=== PATIENT | male | born 1970 | race Caucasian/White ===

== ENCOUNTER 2018-07-05 18:10 | Inpatient (IN) | payer OTHER ==
[~2018-07-05] VITALS: Ht 154.9 cm; Wt 56.4 kg
[~2018-07-05 18:10] MED LIST: ACETAMINOPHEN325 M1 PO; AFRIN120 MG; AFRIN15 ML NASAL; CARAFATE 11 GM/10 M1 PO; CARBAMAZEPINE300 MG PO; CEPACOL SORE T1 EAC2 MM; CEPACOL SORE T1 EAC7 MM; CLOTRIMAZOLE-BE15 GM TP; COLACE100 MG PO; COMPAZINE25 MG RECTAL; COZAAR 50 MG TA50 M1 PO; FIBER LAX625 MG PO; IBUPROFEN 200200 M1 PO; IBUPROFEN 400400 M2 PO; LISINOPRIL10 MG PO; LOPERAMIDE 2 MG2 M1 PO; LOPRESSOR25 PO; METOPROLOL SUCC25 M1 PO; MI ACID LIQUID355 ML PO; MIRALAX17 GM PO; NIZORAL120 ML TP; OMEPRAZOLE20 M2 PO; ONDANSETRON HCL4 M2 PO; PRILOSEC 20 MG20 MG PO; PRILOSEC40 MG PO; PROTONIX40 M1 PO; ROBITUSSIN100 MG/53 PO; ROBITUSSIN15 MG/5 M1 PO; SENNA PO; TUMS PO; ZOFRAN ODT4 MG PO; [UNRECOGNIZED DRUG - CODE] PO
[2018-07-05 18:11] VITALS: BP 100/59
[2018-07-05 18:51] LABS: ABSOLUTE NEUTROPHILS 5.5 thou/uL (1.4-8.2); BASOPHILS 0.4 % (0.0-2.0); EOSINOPHILS 0.2 % (0.0-3.0); HEMATOCRIT 37.3 % (42.0-52.0); HEMOGLOBIN 12.2 gm/dL (14.0-18.0); LYMPHOCYTES 9.7 % (24.0-44.0); MCH 26.4 pg (26.0-34.0); MCHC 32.8 g/dL (28.0-37.0); MCV 80.3 fL (80.0-100.0); MONOCYTES 5.3 % (1.0-8.0); PLATELET COUNT 167 thou/uL (150-400); POLYS 84.4 % (36.0-66.0); RBC 4.64 mil/uL (4.50-6.00); RDW 15.7 % (10.5-14.5); WBC 6.5 thou/uL (4.0-11.0)
[2018-07-05 18:52] LABS: CALCIUM 8.2 mg/dL (8.5-10.1); CREATININE 0.7 mg/dL (0.7-1.3); POTASSIUM 3.4 mmol/L (3.5-5.1)
[2018-07-05 19:02] LABS: ALBUMIN 3.6 g/dL (3.4-5.0); TOTAL BILIRUBIN 0.3 mg/dL (<0.1-1.0)
[2018-07-05 20:00] VITALS: BP 100/59
[2018-07-05 20:28] VITALS: BP 101/58
[2018-07-05 20:30] VITALS: BP 113/71
[2018-07-05] MEDS ORDERED: COLACE100 MG PO (22:26)
--- NOTE | 2018-07-06 00:05 | NUR ---
CALLED [facility] TO VERIFY PRIMARY CARE DOCTOR AND WAS INFORED THAT IT WAS DR IGNACIO NOT DR. WU.
[2018-07-06 00:18] VITALS: BP 102/61
[2018-07-06 02:40] LABS: HEMATOCRIT 35.6 % (42.0-52.0); HEMOGLOBIN 11.2 gm/dL (14.0-18.0)
[2018-07-06 04:19] VITALS: BP 114/75
[2018-07-06 07:34] VITALS: BP 105/63
--- NOTE | 2018-07-06 10:39 | NUR ---
INITIAL ASSESSMENT: Pt evaluated for d/c planning needs. Reviewed chart and spoke with nurse and pt. 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 pt is alert and oriented, with history of CP. Spoke with scanning coordinator at [facility] and they are able to accept pt back on d/c from hospital. Will remain available to assist as needed.
[2018-07-06 11:47] VITALS: BP 108/64
[2018-07-06 16:15] VITALS: BP 114/72
--- NOTE | 2018-07-06 18:45 | NUR ---
SHIFT SUMMARY: CALLED SISTER TO OBTAIN TELEPHONE CONSENT FOR EGD. PT NPO PRIOR TO PROCEDURE. EGD- PT HAS HIATIAL HERNIA OTHERWISE NEGATIVE. PT ALERT, ORIENTED, PLEASANT, SMILING, SR, ROOM AIR, TOLERATED PM MEAL, ADEQUATE URINE OUTPUT. PT CONSENTED TO PLACEMENT OF CONDOM CATH SINCE HAVING DIFFICULTY USING URINAL AND PARTIALLY SPILLING CONTENT. SISTER PRESENT, PROVIDING SUPPORT. PT PROGRESSING.
[2018-07-06 19:22] VITALS: BP 128/86
[2018-07-07 01:24] LABS: HEMATOCRIT 33.8 % (42.0-52.0); HEMOGLOBIN 10.9 gm/dL (14.0-18.0)
[2018-07-07 05:30] VITALS: BP 115/75
[2018-07-07 06:04] LABS: DIRECT BILIRUBIN < 0.1 mg/dL (<0.1-0.3); LIPASE 171 U/L (73-393); SGOT 19 U/L (15-37); SGPT 23 U/L (30-65); TOTAL BILIRUBIN 0.2 mg/dL (<0.1-1.0); TOTAL PROTEIN 6.6 g/dL (6.4-8.2)
--- NOTE | 2018-07-07 06:43 | NUR ---
FOLLOWING POC WITH [facility]. PT HAS BEEN NPO SINCE 2399 FOR ABD ULTRA SOUND. Q2 TURNS. PT CAN ALSO CALL AND EXPRESS HIS NEEDS. ONLY COMPLAINT FROM PT WAS HEADACHE AND PO ACETA GIVEN. HOURLY ROUNDING.
[2018-07-07 07:22] VITALS: BP 125/73
--- NOTE | 2018-07-07 13:26 | NUR ---
DISCHARGE ORDERS RECEIVED. PATIENT DISCHARGING TO [facility]. CHART COPIED PER CFO. ORDERS FAXED TO [facility]. VERIFIED RECEIVED. [facility] TO TRANSPORT PATIENT AND TO [facility] VIA [facility] [phone] HOURS. SISTER/DPOA, ROSELINE NOTIFIED, LEFT FOR HER. UNIT NOTIFIED AND CONTACT NUMBER FOR REPORT PROVIDED. UNIT CM/SW AWARE.
--- NOTE | 2018-07-07 14:42 | NUR ---
assumed patient care at 0700. a/o x4. pleasant. no v/n moted. tolerated fill liquid deit. dc to snf now.
== END 2018-07-07 14:45 | DRG 377 ==
LOC: ER 18:10 → EROBS 19:44 → 3W 19:44
PROVIDERS: Emergency Medicine; Internal Medicine Gastroenterology; Nurse Practitioner Acute Care; ADMIT Family Medicine
PROC: 0DJ08ZZ Inspection of Upper Intestinal Tract, Via Natural or Artificial Opening Endoscopic (ICD-10-PCS; principal; 2018-07-06)
DX: K92.2 Gastrointestinal hemorrhage, unspecified (principal); E43 Unspecified severe protein-calorie malnutrition; G80.9 Cerebral palsy, unspecified; K21.9 Gastro-esophageal reflux disease without esophagitis; I10 Essential (primary) hypertension; G40.909 Epilepsy, unspecified, not intractable, without status epilepticus; E87.6 Hypokalemia; Z79.899 Other long term (current) drug therapy
CPT/HCPCS: 10879; 62110; 62900; 70005

== ENCOUNTER 2019-01-27 04:13 | Inpatient (IN) | payer OTHER ==
[2019-01-27] VITALS (7 sets, daily range): BP systolic 111–152; BP diastolic 70–111
[~2019-01-27] VITALS: Ht 154.9 cm; Wt 68.0 kg
--- NOTE | ~2019-01-27 | HC ---
[facility] [place] [address] CONSULTATION Name: YU RODRIGUEZ Room #: 212-P [facility] IN .R.#: [id number] Admission: 01/27/19 ������������������ Attend Phys: Adal Forbes MD Discharge: ������������������ Date of : 68 Report #: [id number] THIS REPORT FOR: //name// CC: Adal Fosterguillermina DATE OF SERVICE: 01/27/2019 GASTROINTESTINAL CONSULTATION HISTORY OF PRESENT ILLNESS: The patient is a very pleasant 48-year-old patient, disabled with cerebral palsy who I have been asked to see for further evaluation of nausea and vomiting, which occurred after eating a [place] meal yesterday that he said did not agree with his stomach. The emesis was dark in nature, but not frankly melenic. He denies significant abdominal pain. He has been constipated over the course of the last week or so, which is unusual for him. He does take Dulcolax when he gets constipated and has taken MiraLax in the past. His medical history is well outlined in the chart, but includes also esophagitis, GI bleed, hematemesis, hiatal hernia, nausea and vomiting, peptic ulcer disease, upper GI bleed. He had an upper endoscopy done in 06/2018, which was normal. His medication lists include pantoprazole, Carafate, Tylenol, Nizoral, Cozaar, Lopressor, Colace, Tegretol. Other medical history includes cerebral palsy, gastritis, hypertension, seizures. He denies significant alcohol or tobacco consumption. REVIEW OF SYSTEMS: Negative for weight loss, weakness or fatigue. He denies head, eyes, ears, nose or throat complaints. Denies chest pain, chest palpitation, chest pressure, cough, shortness of breath, wheezing, genitourinary, musculoskeletal, or neuropsychiatric complaints beyond that mentioned above. PHYSICAL EXAMINATION: VITAL SIGNS: Afebrile. Vital signs are stable. HEENT: Nonicteric. He has a chronic disfigurement of cerebral palsy. NECK: No JVD, thyromegaly or bruits. CARDIOVASCULAR: Regular. LUNGS: Clear. ABDOMEN: Soft, nondistended, nontender, normoactive bowel sounds. No hepatosplenomegaly. No stigmata of chronic liver disease. No abnormal masses or bruits. EXTREMITIES: No clubbing, cyanosis or edema. [address] [address] CONSULTATION Name: YU RODRIGUEZ Room #: 212-P [facility] IN M.R.#: [id number] Admission: 01/27/19 ������������������ Attend Phys: Adal Forbes MD Discharge: ������������������ Date of : 68 Report #: [id number] NEUROLOGIC: Not performed. RECTAL: Not performed. PERTINENT LABORATORY DATA: Include hemoglobin 12.9, white count 10.9, MCV and RDW are normal. INR 12.1. Chemistry is notable for BUN 25, creatinine 0.6, otherwise normal chemistry. CT scan, mild to moderate size hiatal hernia, thick walled appearance of the pylorus, moderate stool, but no evidence of fecal impaction or bowel obstruction. ASSESSMENT AND PLAN: In summary, the patient has evidence of acute gastroenteritis. His hemoglobin is stable. He has been on double dose PPI therapy since his upper endoscopy in 06/2018, which was normal except for a small hiatal hernia. At this point, I would just treat him symptomatically by advancing his diet, slowly covering him with antiemetics and PPI. At this point, no upper endoscopy or other gastrointestinal studies are planned. I appreciate the opportunity to participate in the care of this nice man. ��������������������������������������������� ���������������������������������������� By: ��������������������������������������������� [id number] Benson Mast MD /nt
[2019-01-27] MEDS ORDERED: CARAFATE 1 GM TA1 G1 PO (04:34)
[2019-01-27] MEDS ORDERED: COZAAR 50 MG TA50 MG PO (04:35)
[2019-01-27 04:43] LABS: ABSOLUTE NEUTROPHILS 8.3 thou/uL (1.4-8.2); BASOPHILS 0.3 % (0.0-2.0); EOSINOPHILS 0.6 % (0.0-3.0); HEMATOCRIT 38.6 % (42.0-52.0); HEMOGLOBIN 12.9 gm/dL (14.0-18.0); LYMPHOCYTES 11.5 % (24.0-44.0); MCH 28.3 pg (26.0-34.0); MCHC 33.4 g/dL (28.0-37.0); MCV 84.8 fL (80.0-100.0); MONOCYTES 4.9 % (1.0-8.0); PLATELET COUNT 208 thou/uL (150-400); POLYS 82.7 % (36.0-66.0); RBC 4.55 mil/uL (4.50-6.00); RDW 14.5 % (10.5-14.5); WBC 10.1 thou/uL (4.0-11.0)
[2019-01-27 04:52] LABS: CALCIUM 8.5 mg/dL (8.5-10.1); CREATININE 0.6 mg/dL (0.7-1.3); POTASSIUM 3.5 mmol/L (3.5-5.1)
[2019-01-27 04:57] LABS: INR 1.2; PROTIME 12.1 Seconds (9.3-11.4)
[2019-01-27 04:58] LABS: ALBUMIN 3.2 g/dL (3.4-5.0); TOTAL BILIRUBIN 0.2 mg/dL (<0.1-1.0); TOTAL PROTEIN 7.4 g/dL (6.4-8.2)
[2019-01-27] MEDS ORDERED: CARBATROL PO (06:57)
--- NOTE | 2019-01-27 08:15 | NUR ---
PT. ARRIVED AROUND 0630; AOX4; TRANSFER TO BED; BED REST; NO C/O PAIN; NO NAUSEA; NO VOMITING; SISTER AT THE BED SIDE; SISTER POA; FLUIDS STARTED; TOUCH CALL LIGHT REQUESTED; REPORT GIVEN TO MONTSERRAT LUNDBERG.
--- NOTE | 2019-01-27 19:46 | NUR ---
Assumed pt care this am, completed admission. Initially on NPO then advanced to a soft diet and is tolerating well.Orders from GI carried out. Informed hospitalist medications are reconcilled and need to be reviewed, advised Dr. Nikita gonzalez. Pt has a very large formed stool this pm after rectal suppository was given. Pt is a total care, uses the urinal, frequent visits have been made and hydration was encouraged. POC followed, no signs or verbalizations of distress have been noted.
[2019-01-28 04:29] VITALS: BP 125/82
[2019-01-28 05:33] LABS: HEMATOCRIT 34.5 % (42.0-52.0); HEMOGLOBIN 11.4 gm/dL (14.0-18.0); MCV 84.7 fL (80.0-100.0); RBC 4.07 mil/uL (4.50-6.00); RDW 14.7 % (10.5-14.5); WBC 7.1 thou/uL (4.0-11.0)
[2019-01-28 05:45] LABS: CALCIUM 8.3 mg/dL (8.5-10.1); CREATININE 0.5 mg/dL (0.7-1.3); POTASSIUM 3.4 mmol/L (3.5-5.1)
[2019-01-28 07:25] VITALS: BP 109/72
[2019-01-28 11:59] LABS: URINE BILIRUBIN NEGATIVE (Negative); URINE BLOOD TRACE (Negative); URINE CLARITY CLEAR; URINE COLOR YELLOW; URINE GLUCOSE-RANDOM* NEGATIVE (Negative); URINE KETONES NEGATIVE (Negative); URINE LEUKOCYTES-REFLEX TRACE (Negative); URINE NITRITE-REFLEX NEGATIVE (Negative); URINE PROTEIN (DIPSTICK) NEGATIVE (Negative); URINE UROBILINOGEN 0.2 E.U./dl (0.2-1.0)
--- NOTE | 2019-01-28 12:20 | NUR ---
AAOX4. JOVIAL. BED SOAKED WITH URINE. BED BATH GIVEN, TEETH BRUSHED, LINENS CHANGED. COMPLETE FEED R/T CEREBRAL PALSY. VOIDS PER URINAL WITH ASSISTANCE. UA SENT TO LAB UNREMARKABLE. FREQUENT CHECKS; WILL CONTINUE TO MONITOR.
[2019-01-28 16:00] VITALS: BP 119/69
[2019-01-28 20:39] VITALS: BP 132/93
[2019-01-29 03:50] VITALS: BP 115/80
[2019-01-29 04:10] LABS: CALCIUM 8.9 mg/dL (8.5-10.1); CREATININE 0.6 mg/dL (0.7-1.3); MAGNESIUM 1.8 mg/dL (1.8-2.4); POTASSIUM 3.8 mmol/L (3.5-5.1)
[2019-01-29 04:16] LABS: HEMATOCRIT 36.1 % (42.0-52.0); HEMOGLOBIN 11.9 gm/dL (14.0-18.0); MCH 28.1 pg (26.0-34.0); MCHC 32.8 g/dL (28.0-37.0); MCV 85.6 fL (80.0-100.0); RBC 4.22 mil/uL (4.50-6.00); RDW 14.3 % (10.5-14.5); WBC 7.5 thou/uL (4.0-11.0)
--- NOTE | 2019-01-29 04:35 | NUR ---
PT ALERT AND ORIENTED. REMAINS PAIN FREE. DENIES NAUSEA, VIMITING AND DIARRHEA. VITALS STABLE. Q2 TURNS AND PER PT REQUEST. VOIDS PER URINAL. CALL APPROPRIATELY FOR HELP. WILL CONTINUE TO FOLLOW PLAN OF CARE.
[2019-01-29 08:19] VITALS: BP 122/86
[2019-01-29 12:36] VITALS: BP 137/87
--- NOTE | 2019-01-29 12:36 | NUR ---
PT DISCHARGING TODAY BACK TO [facility] FAXED DC ORDERS/SUMMARY TO FACILITY SPOKE WITH JUAN IN ADM SHE RECEIVED DC ORDERS AND ARRANGED TRANSPORT VIA [facility] FOR 1300. NOTIFIED PT'S SISTER (VICTOR MANUEL) DPOA OF DC AND TIME OF TRANSPORT AND DCP TRIED NOTIFYING MOTHER NO ANSWER OR VOICEMAIL SISTER WILL NOTIFY MOTHER UNIT NOTIFIED AND CHART COPY PER US. NB TO CALL REPORT TO [phone].
--- NOTE | 2019-01-29 13:19 | NUR ---
ASSESSMENT CHARTED. PT ALERT AND ORIENTED. PLEASANT AND COOPERATIVE WITH CARES. SEEN BY DR. DANIELS. ORDERS GIVEN TO DISCHARGE PT TO SNF. REPORT CALLED IN TO SNF.
== END 2019-01-29 13:20 | DRG 391 ==
LOC: ER 04:13 → EROBS 05:06 → 2N 05:06
PROVIDERS: Emergency Medicine; Internal Medicine; Nurse Practitioner Family; ADMIT Hospitalist
DX: K52.9 Noninfective gastroenteritis and colitis, unspecified (principal); E43 Unspecified severe protein-calorie malnutrition; K92.0 Hematemesis; G80.9 Cerebral palsy, unspecified; G40.909 Epilepsy, unspecified, not intractable, without status epilepticus; E87.6 Hypokalemia; I10 Essential (primary) hypertension; K21.9 Gastro-esophageal reflux disease without esophagitis; Z79.899 Other long term (current) drug therapy; Z87.11 Personal history of peptic ulcer disease
CPT/HCPCS: 10081